=== PATIENT | female | born 1940 | race Caucasian/White ===

== ENCOUNTER → 2020-06-29 | Outpatient (CLI) | payer MEDICARE | END | disposition home or self-care (01) | LOC: STAR 15:46 → MERGE 15:46 | PROVIDERS: ATTEND Anesthesiology | DX: Z20.828 Contact with and (suspected) exposure to other viral communicable diseases (principal) | CPT/HCPCS: 87635 ==

== ENCOUNTER 2020-07-05 09:01 | Day surgery (SDC) | payer MEDICARE ==
[~2020-07-05] VITALS: Ht 162.6 cm; Wt 91.8 kg
[~2020-07-05 09:01] MED LIST: BUPIVACAINE/PF 0.5% ONE; EPINEPHRINE 1 MG/ML, 1ML ONE
[2020-07-05 09:26] VITALS: BP 152/81
[2020-07-05] MEDS ORDERED: CHLORHEXIDINE 15 ML UDC MM STA (09:28)
[2020-07-05] MEDS ORDERED: LACTATED RINGERS 1,000 ML IV SCH (09:30)
[2020-07-05] MEDS ORDERED: CHLORHEXIDINE 15 ML UDC ONE (09:33)
[2020-07-05] MEDS ORDERED: NO MEDS (10:14)
[2020-07-05] MEDS ORDERED: FENTANYL PF 250 MCG/5ML ONE (10:41)
[2020-07-05] MEDS ORDERED: DIAZEPAM 5 MG/ML, 2ML IVPush PRN (12:00)
[2020-07-05] MEDS ORDERED: OXYcodone 5 MG/5 ML ORAL.SOL UDC PO PRN (12:00)
[2020-07-05] MEDS ORDERED: ACETAMINOPHEN 325 MG TABLET PO PRN (12:00)
[2020-07-05] MEDS ORDERED: FENTANYL PF 100 MCG/2ML IV PRN (12:00)
[2020-07-05] MEDS ORDERED: PROMETHAZINE 25 MG/ML, 1ML IV PRN (12:00)
[2020-07-05] MEDS ORDERED: KETOROLAC 30 MG/1 ML IV PRN (12:00)
[2020-07-05] MEDS ORDERED: ALBUTEROL SULFATE 2.5 MG/3 ML NPPB PRN (12:00)
[2020-07-05] MEDS ORDERED: hydrALAzine 20 MG/ML, 1ML IV PRN (12:00)
[2020-07-05] MEDS ORDERED: HYDROmorphone 2 MG/ML, 1ML IVPush PRN (12:00)
[2020-07-05] MEDS ORDERED: MEPERIDINE/PF 25MG/0.5ML IVPush PRN (12:00)
[2020-07-05] MEDS ORDERED: LABETALOL 5MG/ML, 20ML IV PRN (12:00)
[2020-07-05] MEDS ORDERED: ONDANSETRON 2MG/ML, 2ML ONE (12:08)
[2020-07-05] MEDS ORDERED: CEFAZOLIN 1,000 MG ONE (12:08)
[2020-07-05] MEDS ORDERED: NEOSTIGMINE 1 MG/ML, 10ML ONE (12:08)
[2020-07-05] MEDS ORDERED: DEXAMETHASONE 4 MG/ML, 1ML ONE (12:08)
[2020-07-05] MEDS ORDERED: ROCURONIUM 10MG/ML,5ML ONE (12:08)
[2020-07-05] MEDS ORDERED: SUCCINYLCHOLINE 20 MG/ML, 10ML ONE (12:08)
[2020-07-05] MEDS ORDERED: GLYCOPYRROLATE 0.2MG/1ML, 5ML ONE (12:08)
[2020-07-05] MEDS ORDERED: PROPOFOL 10 MG/ML, 20ML ONE (12:08)
[2020-07-05] MEDS ORDERED: OXYcodone 5 MG/5 ML ORAL.SOL UDC ONE (12:43)
[2020-07-05] MEDS ORDERED: FENTANYL PF 100 MCG/2ML ONE (12:43)
[2020-07-05] MEDS ORDERED: ACETAMINOPHEN 325 MG TABLET ONE (13:05)
== END 2020-07-05 14:45 | disposition home or self-care (01) ==
LOC: OUT 09:01 → MERGE 11:30 → OUT 14:45
PROVIDERS: ATTEND Surgery
DX: C50.811 Malignant neoplasm of overlapping sites of right female breast (principal); C77.3 Secondary and unspecified malignant neoplasm of axilla and upper limb lymph nodes; Z80.3 Family history of malignant neoplasm of breast; Z79.899 Other long term (current) drug therapy; Z88.2 Allergy status to sulfonamides; Z88.1 Allergy status to other antibiotic agents; Z88.3 Allergy status to other anti-infective agents
CPT/HCPCS: 19307; 88305; 88307; 93005; C1729; J0171; J0330; J0690; J1100; J2405; J2704; J2710; J3010

== ENCOUNTER 2020-08-25 08:56 | Outpatient (CLI) | payer MEDICARE ==
[~2020-08-25 08:56] MED LIST changes: -BUPIVACAINE/PF 0.5% ONE; -EPINEPHRINE 1 MG/ML, 1ML ONE; +NO MEDS
== END 2020-08-25 23:59 | disposition home or self-care (01) ==
LOC: RAD 08:56
PROVIDERS: ATTEND Pathology Hematology
DX: C50.811 Malignant neoplasm of overlapping sites of right female breast (principal)
CPT/HCPCS: 36573; C1751